=== PATIENT | female | born 1990 | race Caucasian/White ===

== ENCOUNTER 2017-06-04 21:51 | Emergency (ER) | payer MEDICAID, OTHER ==
[~2017-06-04] VITALS: Ht 157.5 cm; Wt 70.3 kg
[2017-06-04] MEDS ORDERED: IBUPROFEN 800 MG TABLET PO (22:01)
--- NOTE | 2017-06-04 22:03 | NUR ---
Pt ambulated to room with steady gait. Awaiting further eval.
[2017-06-04 22:22] LABS: *URINE HCG, QUAL NEGATIVE (NEGATIVE)
[2017-06-04 22:29] LABS: *BILIRUBIN,URIN NEGATIVE (NEGATIVE); *BLOOD, URINE NEGATIVE (NEGATIVE); *CLARITY,URINE CLEAR (CLEAR); *COLOR,URINE YELLOW (YELLOW); *KETONES,URINE NEGATIVE (NEGATIVE); *PROTEIN,URINE NEGATIVE (NEGATIVE); *UROBILINOGEN,URINE 0.2 E.U./dl (NORMAL); LEUKOCYTE ESTERASE ,URINE 1+ (NEGATIVE); NITRITE, URINE NEGATIVE (NEGATIVE); PH,URINE 5.5 (5.0-8.0); UGLUCOSE NEGATIVE (NEGATIVE)
[2017-06-04 22:33] LABS: BACTERIA,URINE FEW /HPF (NONE SEEN); RBC,URINE 0-3 /HPF (0-3); SQUAMOUS EPITHELIAL CELL,UR MANY /HPF (NONE SEEN)
--- NOTE | 2017-06-04 22:55 | NUR ---
Pt stable for discharge per Dr. Elizabeth. Pt given ACI. Pt verbalized understanding of dc instructions. Pt ambulated out of er with steady gait.
[2017-06-04 23:10] VITALS: BP 120/74
[2017-06-07 10:08] LABS: *GC NAA Negative (Negative); *TRIC.VAG. NAA Negative (Negative)
== END 2017-06-04 22:55 | disposition home or self-care (01) ==
LOC: ER 21:52
DX: R09.82 Postnasal drip (principal); N39.0 Urinary tract infection, site not specified
CPT/HCPCS: 36415; 84703; 86403; 87070; 87491; A4663